=== PATIENT | male | born 1935 | race Caucasian/White ===

== ENCOUNTER 2018-03-25 10:58 | Inpatient (IN) | payer MEDICARE, OTHER ==
[~2018-03-25] VITALS: Ht 170.2 cm; Wt 62.0 kg
[~2018-03-25 10:58] MED LIST: OSC500T PO
[2018-03-25] MEDS ORDERED: AMLODIPINE BESYLATE 10 MG TAB (11:24)
[2018-03-25] MEDS ORDERED: [UNRECOGNIZED DRUG - OTHER] (11:24)
[2018-03-25] MEDS ORDERED: INDOMETHACIN 50 MG CAPSULE (11:24)
[2018-03-25 11:41] LABS: BASOPHILS # (AUTO) 0.1 X10'3 (0-0.2); BASOPHILS % (AUTO) 1.2 % (0-1); EOSINOPHILS # (AUTO) 0.3 X10'3 (0-0.9); EOSINOPHILS % (AUTO) 2.7 % (0-6); HEMATOCRIT 35.2 % (42.0-52.0); HEMOGLOBIN 11.9 g/dl (14.0-17.9); LYMPHOCYTES # (AUTO) 1.1 X10'3 (1.1-4.8); LYMPHOCYTES % (AUTO) 11.8 % (21-51); MEAN CORPUSCULAR HEMOGLOBIN 30.5 PG (27.0-31.0); MEAN CORPUSCULAR HGB CONC 33.7 % (33.0-36.5); MEAN CORPUSCULAR VOLUME 90.7 FL (78-98); MEAN PLATELET VOLUME 7.9 FL (7.4-10.4); MONOCYTES # (AUTO) 1.2 X10'3 (0-0.9); MONOCYTES % (AUTO) 12.4 % (2-12); NEUTROPHILS # (AUTO) 6.7 X10'3 (1.8-7.7); NEUTROPHILS % (AUTO) 71.9 % (42-75); PLATELET COUNT 307 X10'3 (140-440); RED BLOOD COUNT 3.89 X10'6 (4.70-6.10); RED CELL DISTRIBUTION WIDTH 13.6 % (11.5-14.5); WHITE BLOOD COUNT 9.4 X10'3 (4.5-11.0)
[2018-03-25 12:00] LABS: INR 1.1 INR; PARTIAL THROMBOPLASTIN TIME 27 SECONDS (22-32); PROTHROMBIN TIME 11.2 SECONDS (9.0-12.0)
[2018-03-25 12:05] LABS: ALANINE AMINOTRANSFERASE 15 U/L (12-78); ALBUMIN 3.2 G/DL (3.4-5.0); ALBUMIN/GLOBULIN RATIO 0.7 (1.1-1.5); ALKALINE PHOSPHATASE 103 IU/L (46-116); ANION GAP 16 (8-16); BILIRUBIN,TOTAL 0.4 MG/DL (0.1-1.0); BLOOD UREA NITROGEN 70 MG/DL (7-18); CHLORIDE 103 MMOL/L (99-107); CREATININE 3.68 MG/DL (0.60-1.10); GLUCOSE 110 MG/DL (70-104); SODIUM 138 MMOL/L (135-145); TOTAL CARBON DIOXIDE 18.9 MMOL/L (24-32); TOTAL PROTEIN 7.5 G/DL (6.4-8.2); eGFR 16 ML/MIN
[2018-03-25 12:08] LABS: ASPARTATE AMINO TRANSFERASE 16 U/L (10-37); POTASSIUM 4.8 MMOL/L (3.5-5.1)
[2018-03-25] MEDS ORDERED: acetaminophen 325mg tablet PO PRN (13:15)
[2018-03-25] MEDS ORDERED: magnesium hydroxide 30ml (MOM) UD suspension PO PRN (13:15)
[2018-03-25] MEDS ORDERED: potassium Cl 40MEQ/NS 500ml 500 ML IV PRN ×2 (13:15)
[2018-03-25] MEDS ORDERED: magnesium 4gm in 100ml NS 100 ML IV PRN (13:15)
[2018-03-25] MEDS ORDERED: ondansetron/PF 4mg/2ml inj IV PRN (13:15)
[2018-03-25] MEDS ORDERED: potassium Cl 20 mEq SR tablet PO PRN ×2 (13:15)
[2018-03-25] MEDS ORDERED: mag hydrox/Alum hydrox/simeth 30ml oral suspension PO PRN (13:15)
[2018-03-25] MEDS: clopidogrel 75mg tablet PO SCH (15:10)
[2018-03-25 15:36] LABS: OSMOLALITY 312 MOSM/K (280-300)
[2018-03-25] MEDS ORDERED: aminophylline 250mg/10ml inj. IV PRN (15:40)
[2018-03-25] MEDS ORDERED: metoprolol tartrate 1mg/ml inj IV PRN (15:40)
[2018-03-25] MEDS ORDERED: regadenoson 0.4mg/5ml syringe IV ONE (15:40)
[2018-03-25 15:58] LABS: CLARITY,URINE CLEAR (Clear); COLOR,URINE STRAW (Yellow); GLUCOSE, URINE NEGATIVE (Neg); KETONES,URINE NEGATIVE (Neg); LEUKOCYTE ESTERASE ,URINE NEGATIVE (Neg); NITRITES, URINE NEGATIVE (Neg); OCCULT BLOOD,URINE NEGATIVE (Neg); PROTEIN,URINE NEGATIVE (Neg); UROBILINOGEN,URINE 0.2 E.U/dL (0.2-1.0)
[2018-03-25 16:00] LABS: SODIUM,URINE RANDOM 93 MEQ/L
[2018-03-25 16:03] LABS: UA COLLECTION TYPE URINAL
[2018-03-25 16:17] LABS: OSMOLALITY UA 412 MOSM/K (50-1400)
[2018-03-25] MEDS: nitroGLYCERIN 0.4mg SUBLingual tab SL PRN ×2 (19:09→23:19)
[2018-03-25] MEDS: heparin, porcine 5000 units/ml vial SQ SCH (20:53)
[2018-03-25] MEDS: carVEDilol 3.125mg tablet PO SCH (20:53)
[2018-03-25] MEDS: pantoprazole 40 MG vial IV SCH (20:53)
[2018-03-25 22:00] VITALS: BP 151/53
[2018-03-25] MEDS ORDERED: pneumococcal 23-VAL P-sac vacc 25 mcg/0.5ml vial IMVAC ONE (22:30)
[2018-03-25 23:25] VITALS: BP 156/59
[2018-03-26] VITALS (15 sets, daily range): BP systolic 122–161; BP diastolic 45–69
[2018-03-26 06:01] LABS: BASOPHILS % (AUTO) 0.4 % (0-1); EOSINOPHILS # (AUTO) 0.2 X10'3 (0-0.9); EOSINOPHILS % (AUTO) 3.5 % (0-6); HEMATOCRIT 32.1 % (42.0-52.0); HEMOGLOBIN 10.8 g/dl (14.0-17.9); LYMPHOCYTES # (AUTO) 0.8 X10'3 (1.1-4.8); LYMPHOCYTES % (AUTO) 11.2 % (21-51); MEAN CORPUSCULAR HEMOGLOBIN 30.5 PG (27.0-31.0); MEAN CORPUSCULAR HGB CONC 33.7 % (33.0-36.5); MEAN CORPUSCULAR VOLUME 90.4 FL (78-98); MEAN PLATELET VOLUME 7.4 FL (7.4-10.4); MONOCYTES # (AUTO) 0.7 X10'3 (0-0.9); MONOCYTES % (AUTO) 10.2 % (2-12); NEUTROPHILS # (AUTO) 5.3 X10'3 (1.8-7.7); NEUTROPHILS % (AUTO) 74.7 % (42-75); PLATELET COUNT 289 X10'3 (140-440); RED BLOOD COUNT 3.55 X10'6 (4.70-6.10); RED CELL DISTRIBUTION WIDTH 13.6 % (11.5-14.5); WHITE BLOOD COUNT 7.1 X10'3 (4.5-11.0)
[2018-03-26 06:51] LABS: ALANINE AMINOTRANSFERASE 12 U/L (12-78); ALBUMIN 2.7 G/DL (3.4-5.0); ALBUMIN/GLOBULIN RATIO 0.8 (1.1-1.5); ALKALINE PHOSPHATASE 81 IU/L (46-116); ANION GAP 15 (8-16); ASPARTATE AMINO TRANSFERASE 9 U/L (10-37); BILIRUBIN,TOTAL 0.4 MG/DL (0.1-1.0); BLOOD UREA NITROGEN 70 MG/DL (7-18); BUN/CREATININE RATIO 21.1 (5.4-32.0); CALCIUM 8.5 MG/DL (8.5-10.1); CHLORIDE 107 MMOL/L (99-107); CREATININE 3.32 MG/DL (0.60-1.10); GLUCOSE 101 MG/DL (70-104); MAGNESIUM 1.4 MG/DL (1.5-2.4); POTASSIUM 4.3 MMOL/L (3.5-5.1); SODIUM 140 MMOL/L (135-145); TOTAL CARBON DIOXIDE 18.3 MMOL/L (24-32); TOTAL PROTEIN 6.2 G/DL (6.4-8.2); eGFR 18 ML/MIN
[2018-03-26] MEDS: pantoprazole 40 MG vial IV SCH ×2 (07:52→19:11)
[2018-03-26] MEDS: clopidogrel 75mg tablet PO SCH (07:52)
[2018-03-26] MEDS: heparin, porcine 5000 units/ml vial SQ SCH ×2 (07:52→19:12)
[2018-03-26] MEDS: K and/or MAG REPLACEMENT MC SCH (08:00)
[2018-03-26] MEDS: carVEDilol 3.125mg tablet PO SCH (08:00)
[2018-03-26] MEDS: magnesium Cl slow-release 64mg tablet PO PRN ×2 (08:04→18:29)
[2018-03-26] MEDS ORDERED: regadenoson 0.4mg/5ml syringe IV ONE (10:44)
[2018-03-26] MEDS ORDERED: aminophylline inj. 10 ML IV ONE (10:44)
[2018-03-26] MEDS ORDERED: regadenoson 0.4mg/5ml syringe IV PRN (10:45)
[2018-03-26] MEDS: carVEDilol 12.5mg tablet PO SCH (19:11)
[2018-03-27 05:02] LABS: BASOPHILS % (AUTO) 0.2 % (0-1); EOSINOPHILS # (AUTO) 0.4 X10'3 (0-0.9); EOSINOPHILS % (AUTO) 5.1 % (0-6); HEMATOCRIT 30.1 % (42.0-52.0); HEMOGLOBIN 10.2 g/dl (14.0-17.9); LYMPHOCYTES % (AUTO) 13.3 % (21-51); MEAN CORPUSCULAR HEMOGLOBIN 30.4 PG (27.0-31.0); MEAN CORPUSCULAR HGB CONC 33.9 % (33.0-36.5); MEAN CORPUSCULAR VOLUME 89.8 FL (78-98); MEAN PLATELET VOLUME 7.3 FL (7.4-10.4); MONOCYTES # (AUTO) 0.9 X10'3 (0-0.9); MONOCYTES % (AUTO) 11.3 % (2-12); NEUTROPHILS # (AUTO) 5.4 X10'3 (1.8-7.7); NEUTROPHILS % (AUTO) 70.1 % (42-75); PLATELET COUNT 277 X10'3 (140-440); RED BLOOD COUNT 3.35 X10'6 (4.70-6.10); RED CELL DISTRIBUTION WIDTH 13.4 % (11.5-14.5); WHITE BLOOD COUNT 7.7 X10'3 (4.5-11.0)
[2018-03-27 05:43] LABS: ALANINE AMINOTRANSFERASE 13 U/L (12-78); ALBUMIN 2.6 G/DL (3.4-5.0); ALBUMIN/GLOBULIN RATIO 0.8 (1.1-1.5); ALKALINE PHOSPHATASE 73 IU/L (46-116); ANION GAP 13 (8-16); ASPARTATE AMINO TRANSFERASE 10 U/L (10-37); BILIRUBIN,TOTAL 0.4 MG/DL (0.1-1.0); BLOOD UREA NITROGEN 72 MG/DL (7-18); BUN/CREATININE RATIO 21.9 (5.4-32.0); CALCIUM 8.7 MG/DL (8.5-10.1); CHLORIDE 108 MMOL/L (99-107); CHOL/HDL RATIO 7.8 (0.00-4.99); CHOLESTEROL 149 MG/DL (0-200); CREATININE 3.29 MG/DL (0.60-1.10); GLUCOSE 100 MG/DL (70-104); HDL CHOLESTEROL 19 MG/DL (35-60); LDL CHOLESTEROL 108 MG/DL (50-100); MAGNESIUM 1.5 MG/DL (1.5-2.4); POTASSIUM 4.1 MMOL/L (3.5-5.1); SODIUM 140 MMOL/L (135-145); TOTAL CARBON DIOXIDE 19.2 MMOL/L (24-32); TOTAL PROTEIN 5.9 G/DL (6.4-8.2); TRIGLYCERIDES 133 MG/DL (20-135); eGFR 18 ML/MIN
[2018-03-27 06:00] VITALS: BP 107/47
[2018-03-27 06:47] LABS: CLARITY,URINE CLEAR (Clear); COLOR,URINE YELLOW (Yellow); GLUCOSE, URINE NEGATIVE (Neg); KETONES,URINE NEGATIVE (Neg); LEUKOCYTE ESTERASE ,URINE NEGATIVE (Neg); NITRITES, URINE NEGATIVE (Neg); OCCULT BLOOD,URINE NEGATIVE (Neg); PH,URINE 5.5 (4.8-8.0); PROTEIN,URINE NEGATIVE (Neg); UROBILINOGEN,URINE 0.2 E.U/dL (0.2-1.0)
[2018-03-27 06:52] LABS: UA COLLECTION TYPE VOIDED
[2018-03-27] MEDS: pantoprazole 40 MG vial IV SCH ×2 (07:23→20:49)
[2018-03-27] MEDS: atorvastatin 10mg tablet PO SCH (07:28)
[2018-03-27] MEDS: clopidogrel 75mg tablet PO SCH (07:28)
[2018-03-27] MEDS: heparin, porcine 5000 units/ml vial SQ SCH ×2 (07:29→20:50)
[2018-03-27] MEDS: carVEDilol 12.5mg tablet PO SCH ×2 (07:33→20:50)
[2018-03-27] MEDS: K and/or MAG REPLACEMENT MC SCH (08:00)
[2018-03-27] MEDS ORDERED: azithromycin/NS 500mg/250ml 250 ML IV SCH (09:55)
[2018-03-27 11:00] VITALS: BP 125/55
[2018-03-27] MEDS: CefTRIAXone/D5W-Rocephin 1gm 50 ML IV SCH (11:34)
[2018-03-27 14:11] LABS: CLARITY,URINE CLEAR (Clear); COLOR,URINE YELLOW (Yellow); GLUCOSE, URINE NEGATIVE (Neg); KETONES,URINE NEGATIVE (Neg); LEUKOCYTE ESTERASE ,URINE NEGATIVE (Neg); NITRITES, URINE NEGATIVE (Neg); OCCULT BLOOD,URINE NEGATIVE (Neg); PH,URINE 5.5 (4.8-8.0); PROTEIN,URINE NEGATIVE (Neg); UROBILINOGEN,URINE 0.2 E.U/dL (0.2-1.0)
[2018-03-27 14:16] LABS: UA COLLECTION TYPE NON-SPECIFIED
[2018-03-27 14:27] LABS: TOTAL PROTEIN,URINE RANDOM 27.1 MG/DL
[2018-03-27 15:00] VITALS: BP 120/54
[2018-03-27 19:00] VITALS: BP 141/54
[2018-03-27] MEDS: lactobacillus rhamnosus 10,000 MMU CELLS/CAPSULE PO SCH (20:00)
[2018-03-27] MEDS: sodium bicarbonate 650mg tablet PO SCH (20:50)
[2018-03-27 23:00] VITALS: BP 133/52
[2018-03-28 03:00] VITALS: BP 123/54
[2018-03-28 06:24] LABS: BASOPHILS % (AUTO) 0.9 % (0-1); EOSINOPHILS # (AUTO) 0.4 X10'3 (0-0.9); EOSINOPHILS % (AUTO) 6.8 % (0-6); HEMATOCRIT 30.9 % (42.0-52.0); HEMOGLOBIN 10.5 g/dl (14.0-17.9); LYMPHOCYTES # (AUTO) 1.1 X10'3 (1.1-4.8); LYMPHOCYTES % (AUTO) 19.9 % (21-51); MEAN CORPUSCULAR HEMOGLOBIN 30.6 PG (27.0-31.0); MEAN CORPUSCULAR HGB CONC 34.1 % (33.0-36.5); MEAN CORPUSCULAR VOLUME 89.9 FL (78-98); MEAN PLATELET VOLUME 7.6 FL (7.4-10.4); MONOCYTES # (AUTO) 0.5 X10'3 (0-0.9); MONOCYTES % (AUTO) 9.3 % (2-12); NEUTROPHILS # (AUTO) 3.4 X10'3 (1.8-7.7); NEUTROPHILS % (AUTO) 63.1 % (42-75); PLATELET COUNT 295 X10'3 (140-440); RED BLOOD COUNT 3.44 X10'6 (4.70-6.10); RED CELL DISTRIBUTION WIDTH 13.3 % (11.5-14.5); WHITE BLOOD COUNT 5.4 X10'3 (4.5-11.0)
[2018-03-28 06:39] LABS: ALANINE AMINOTRANSFERASE 13 U/L (12-78); ALBUMIN 2.7 G/DL (3.4-5.0); ALBUMIN/GLOBULIN RATIO 0.8 (1.1-1.5); ALKALINE PHOSPHATASE 73 IU/L (46-116); ANION GAP 13 (8-16); ASPARTATE AMINO TRANSFERASE 12 U/L (10-37); BILIRUBIN,TOTAL 0.3 MG/DL (0.1-1.0); BLOOD UREA NITROGEN 64 MG/DL (7-18); BUN/CREATININE RATIO 20.4 (5.4-32.0); CALCIUM 8.9 MG/DL (8.5-10.1); CHLORIDE 108 MMOL/L (99-107); CREATININE 3.13 MG/DL (0.60-1.10); GLUCOSE 96 MG/DL (70-104); MAGNESIUM 1.6 MG/DL (1.5-2.4); POTASSIUM 4.3 MMOL/L (3.5-5.1); SODIUM 141 MMOL/L (135-145); TOTAL CARBON DIOXIDE 19.9 MMOL/L (24-32); TOTAL PROTEIN 6.2 G/DL (6.4-8.2); eGFR 19 ML/MIN
[2018-03-28 07:00] VITALS: BP 125/53
[2018-03-28] MEDS: K and/or MAG REPLACEMENT MC SCH (08:00)
[2018-03-28] MEDS: CefTRIAXone/D5W-Rocephin 1gm 50 ML IV SCH (08:42)
[2018-03-28] MEDS: pantoprazole 40 MG vial IV SCH (08:43)
[2018-03-28] MEDS: heparin, porcine 5000 units/ml vial SQ SCH (08:44)
[2018-03-28] MEDS: atorvastatin 10mg tablet PO SCH (08:44)
[2018-03-28] MEDS: carVEDilol 12.5mg tablet PO SCH (08:44)
[2018-03-28] MEDS: lactobacillus rhamnosus 10,000 MMU CELLS/CAPSULE PO SCH (08:44)
[2018-03-28] MEDS: clopidogrel 75mg tablet PO SCH (08:44)
[2018-03-28] MEDS: sodium bicarbonate 650mg tablet PO SCH ×2 (08:44→13:20)
[2018-03-28 09:02] VITALS: BP 141/57
[2018-03-28] MEDS ORDERED: sodium chloride 0.45% 1,000 ML IV SCH (09:10)
[2018-03-28] MEDS ORDERED: nitroGLYCERIN 0.4mg SUBLingual tab SL PRN (09:10)
[2018-03-28] MEDS ORDERED: levoFLOXACIN-Levaquin 750MG/D5 150 ML IV SCH (09:10)
[2018-03-28 11:00] VITALS: BP 125/57
[2018-03-29] MEDS ORDERED: atorvastatin 20mg tablet PO SCH (08:00)
[2018-03-30] MEDS ORDERED: levoFLOXACIN-Levaquin 500mg/D5 150 ML IV SCH (08:00)
[2018-03-30] MEDS ORDERED: levoFLOXACIN-Levaquin 500mg/D5 100 ML IV SCH (08:00)
== END 2018-03-28 15:52 | disposition left against medical advice (07) | DRG 682 ==
LOC: ER 10:58 → ED HOLD 13:15 → PCU 3S 21:25
PROVIDERS: ADMIT Internal Medicine; ATTEND Internal Medicine
PROC: 4A02XM4 Measurement of Cardiac Total Activity, External Approach (ICD-10-PCS; principal; 2018-03-26)
PROC: 3E033HZ Introduction of Radioactive Substance into Peripheral Vein, Percutaneous Approach (ICD-10-PCS; 2018-03-26)
PROC: CT131ZZ Planar Nuclear Medicine Imaging of Kidneys, Ureters and Bladder using Technetium 99m (Tc-99m) (ICD-10-PCS; 2018-03-28)
DX: N17.9 Acute kidney failure, unspecified (principal); J18.9 Pneumonia, unspecified organism; I12.9 Hypertensive chronic kidney disease with stage 1 through stage 4 chronic kidney disease, or unspecified chronic kidney disease; I25.10 Atherosclerotic heart disease of native coronary artery without angina pectoris; K21.9 Gastro-esophageal reflux disease without esophagitis; M10.9 Gout, unspecified; M25.562 Pain in left knee; E87.8 Other disorders of electrolyte and fluid balance, not elsewhere classified; R80.9 Proteinuria, unspecified; R91.8 Other nonspecific abnormal finding of lung field; N18.3 Chronic kidney disease, stage 3 (moderate); Z53.21 Procedure and treatment not carried out due to patient leaving prior to being seen by health care provider; Z95.1 Presence of aortocoronary bypass graft; Z79.82 Long term (current) use of aspirin; Z88.6 Allergy status to analgesic agent; Z79.899 Other long term (current) drug therapy; Z92.21 Personal history of antineoplastic chemotherapy; Z92.3 Personal history of irradiation; Z87.891 Personal history of nicotine dependence; Z85.118 Personal history of other malignant neoplasm of bronchus and lung
CPT/HCPCS: 36415; 71045; 71250; 76775; 78452; 78707; 80053; 80061; 81003; 82570; 83735; 83880; 83930; 83935; 84133; 84156; 84300; 84484; 85025; 85610; 85730; 87070; 90732; 93005; 93017; 93306; 99285; A9500; A9562; C9113; G0378; J0280; J0456; J0696; J1644; J1956

== ENCOUNTER 2018-03-31 21:22 | Inpatient (IN) | payer MEDICARE, MEDICAID ==
[~2018-03-31] VITALS: Ht 175.3 cm; Wt 63.9 kg
[2018-03-31] MEDS ORDERED: ondansetron/PF 4mg/2ml inj IV ONE (21:30)
[2018-03-31] MEDS ORDERED: normal saline 1000ML IV soln IV ONE (21:30)
[2018-03-31] MEDS ORDERED: pantoprazole 40 MG vial IV ONE (21:30)
[2018-03-31] MEDS ORDERED: octreotide inj. 1,250 MCG in normal saline 250ml IV soln 250 ML IV ONE (21:30)
[2018-03-31 22:01] LABS: BASOPHILS % (AUTO) 0.1 % (0-1); EOSINOPHILS # (AUTO) 0.3 X10'3 (0-0.9); LYMPHOCYTES # (AUTO) 1.5 X10'3 (1.1-4.8); LYMPHOCYTES % (AUTO) 10.1 % (21-51); MEAN CORPUSCULAR HEMOGLOBIN 30.4 PG (27.0-31.0); MEAN CORPUSCULAR HGB CONC 33.5 % (33.0-36.5); MEAN CORPUSCULAR VOLUME 90.9 FL (78-98); MEAN PLATELET VOLUME 8.3 FL (7.4-10.4); MONOCYTES # (AUTO) 0.5 X10'3 (0-0.9); MONOCYTES % (AUTO) 3.5 % (2-12); NEUTROPHILS # (AUTO) 12.3 X10'3 (1.8-7.7); NEUTROPHILS % (AUTO) 84.3 % (42-75); PLATELET COUNT 229 X10'3 (140-440); RED BLOOD COUNT 1.59 X10'6 (4.70-6.10); RED CELL DISTRIBUTION WIDTH 13.6 % (11.5-14.5); WHITE BLOOD COUNT 14.6 X10'3 (4.5-11.0)
[2018-03-31 22:06] LABS: HEMATOCRIT 14.5 % (42.0-52.0); HEMOGLOBIN 4.9 g/dl (14.0-17.9)
[2018-03-31 22:16] LABS: ALANINE AMINOTRANSFERASE 15 U/L (12-78); ALBUMIN 2.3 G/DL (3.4-5.0); ALBUMIN/GLOBULIN RATIO 0.9 (1.1-1.5); ALKALINE PHOSPHATASE 53 IU/L (46-116); ANION GAP 22 (8-16); ASPARTATE AMINO TRANSFERASE 12 U/L (10-37); BILIRUBIN,TOTAL 0.2 MG/DL (0.1-1.0); BLOOD UREA NITROGEN 105 MG/DL (7-18); BUN/CREATININE RATIO 25.6 (5.4-32.0); CALCIUM 7.9 MG/DL (8.5-10.1); CHLORIDE 105 MMOL/L (99-107); GLUCOSE 249 MG/DL (70-104); POTASSIUM 5.2 MMOL/L (3.5-5.1); SODIUM 139 MMOL/L (135-145); TOTAL PROTEIN 4.8 G/DL (6.4-8.2); eGFR 14 ML/MIN
[2018-03-31 22:19] LABS: TOTAL CARBON DIOXIDE 12.2 MMOL/L (24-32)
[2018-03-31] MEDS ORDERED: morphine 4 MG/ML inj SYRINge IV ONE (22:20)
[2018-03-31] MEDS ORDERED: tranexamic acid 100mg/ml inj. IV ONE (22:20)
[2018-03-31] MEDS ORDERED: TRANEXAMIC ACID IV ONE (22:30)
[2018-03-31] MEDS ORDERED: NORMAL SALINE IV ONE (22:30)
[2018-03-31 22:44] LABS: INR 1.5 INR; PARTIAL THROMBOPLASTIN TIME 27 SECONDS (22-32); PROTHROMBIN TIME 14.7 SECONDS (9.0-12.0)
[2018-03-31] MEDS ORDERED: morphine 4 MG/ML inj SYRINge IM ONE (23:15)
[2018-03-31] MEDS: normal saline 1000ml 1,000 ML IV SCH (23:18)
[2018-03-31] MEDS ORDERED: acetaminophen 325mg tablet PO PRN ×2 (23:20)
[2018-03-31] MEDS ORDERED: potassium Cl 20 mEq SR tablet PO PRN ×2 (23:20)
[2018-03-31] MEDS ORDERED: potassium Cl 40MEQ/NS 500ml 500 ML IV PRN ×2 (23:20)
[2018-03-31] MEDS ORDERED: morphine 2 MG/ML inj. syringe IV PRN (23:20)
[2018-03-31] MEDS: K, MAG and/or Phos replacement - Verify level? MC SCH (23:20)
[2018-03-31] MEDS ORDERED: morphine 4 MG/ML inj SYRINge IV PRN (23:20)
[2018-03-31] MEDS ORDERED: ondansetron/PF 4mg/2ml inj IV PRN (23:20)
[2018-03-31] MEDS ORDERED: magnesium hydroxide 30ml (MOM) UD suspension PO PRN (23:20)
[2018-04-01] VITALS (33 sets, daily range): BP systolic 95–142; BP diastolic 39–85
[2018-04-01] MEDS ORDERED: pantoprazole 40MG/NS 100ML BAG 100 ML IV ONE (01:00)
[2018-04-01 02:11] LABS: ABG BASE EXCESS -10.8 mmol/L (-2.0-3.0); ABG HCO3 14.1 mmol/L (22.0-26.0); ABG OXYGEN SATURATION 97.7 % (95-98); ABG PCO2 (T) 27.3 mmHg (35.0-48.0); ABG PH (T) 7.331 (7.350-7.450); ABG PO2 (T) 130.4 mmHg (83-108); ALLEN'S TEST Positive; FCOHb 0.2 % (0.5-1.5); FMetHb 0.1 % (0.3-1.12); FO2Hb 97.4 % (94-100); PATIENT TEMPERATURE 36.9; TOTAL HEMOGLOBIN 6.7 G/dl (14.0-18.0)
[2018-04-01 05:27] LABS: BASOPHILS % (AUTO) 0.1 % (0-1); EOSINOPHILS # (AUTO) 0.2 X10'3 (0-0.9); EOSINOPHILS % (AUTO) 1.8 % (0-6); HEMATOCRIT 23.9 % (42.0-52.0); HEMOGLOBIN 7.8 g/dl (14.0-17.9); LYMPHOCYTES # (AUTO) 1.2 X10'3 (1.1-4.8); LYMPHOCYTES % (AUTO) 8.8 % (21-51); MEAN CORPUSCULAR HEMOGLOBIN 28.6 PG (27.0-31.0); MEAN CORPUSCULAR HGB CONC 32.6 % (33.0-36.5); MEAN CORPUSCULAR VOLUME 87.9 FL (78-98); MEAN PLATELET VOLUME 8.5 FL (7.4-10.4); MONOCYTES # (AUTO) 0.6 X10'3 (0-0.9); MONOCYTES % (AUTO) 4.6 % (2-12); NEUTROPHILS # (AUTO) 11.2 X10'3 (1.8-7.7); NEUTROPHILS % (AUTO) 84.7 % (42-75); PLATELET COUNT 158 X10'3 (140-440); RED BLOOD COUNT 2.72 X10'6 (4.70-6.10); RED CELL DISTRIBUTION WIDTH 16.8 % (11.5-14.5); WHITE BLOOD COUNT 13.3 X10'3 (4.5-11.0)
[2018-04-01 05:36] LABS: ALANINE AMINOTRANSFERASE 21 U/L (12-78); ALBUMIN 2.4 G/DL (3.4-5.0); ALKALINE PHOSPHATASE 51 IU/L (46-116); ANION GAP 13 (8-16); ASPARTATE AMINO TRANSFERASE 54 U/L (10-37); BILIRUBIN,TOTAL 0.6 MG/DL (0.1-1.0); BLOOD UREA NITROGEN 97 MG/DL (7-18); BUN/CREATININE RATIO 27.6 (5.4-32.0); CALCIUM 7.4 MG/DL (8.5-10.1); CHLORIDE 110 MMOL/L (99-107); CREATININE 3.51 MG/DL (0.60-1.10); GLUCOSE 161 MG/DL (70-104); POTASSIUM 5.7 MMOL/L (3.5-5.1); SODIUM 141 MMOL/L (135-145); TOTAL CARBON DIOXIDE 17.6 MMOL/L (24-32); TOTAL PROTEIN 4.8 G/DL (6.4-8.2); eGFR 17 ML/MIN
[2018-04-01 05:39] LABS: MAGNESIUM 1.3 MG/DL (1.5-2.4); PHOSPHORUS 4.8 MG/DL (2.3-4.5)
[2018-04-01] MEDS: K, MAG and/or Phos replacement - Verify level? MC SCH (08:00)
[2018-04-01] MEDS ORDERED: fentaNYL/PF 50MCG/1 ML 2ML syringe ONE (08:51)
[2018-04-01] MEDS ORDERED: LIDOcaine Viscous 15ml cup ONE (08:51)
[2018-04-01] MEDS ORDERED: MIDAZolam 5mg/5ml vial ONE (08:51)
[2018-04-01] MEDS: pantoprazole 40MG/NS 100ML BAG 100 ML IV SCH ×3 (10:31→19:41)
[2018-04-01 12:42] LABS: HEMOGLOBIN 7.2 g/dl (14.0-17.9); MEAN CORPUSCULAR HGB CONC 33.3 % (33.0-36.5); MEAN CORPUSCULAR VOLUME 87.2 FL (78-98); MEAN PLATELET VOLUME 8.1 FL (7.4-10.4); PLATELET COUNT 167 X10'3 (140-440); RED BLOOD COUNT 2.48 X10'6 (4.70-6.10); RED CELL DISTRIBUTION WIDTH 16.6 % (11.5-14.5)
[2018-04-01 12:45] LABS: HEMATOCRIT 21.7 % (42.0-52.0)
[2018-04-01] MEDS ORDERED: AMLO10TA4 PO (17:24)
[2018-04-01] MEDS ORDERED: POTA8TAB57 PO (17:25)
[2018-04-01] MEDS ORDERED: ASPI-611 PO (17:25)
[2018-04-01] MEDS ORDERED: FURO-150 PO (17:25)
[2018-04-01] MEDS ORDERED: METO25TA6 PO (17:25)
[2018-04-01] MEDS: normal saline 1000ml 1,000 ML IV SCH (17:38)
[2018-04-01 17:52] LABS: MEAN CORPUSCULAR HEMOGLOBIN 29.5 PG (27.0-31.0); MEAN CORPUSCULAR HGB CONC 33.5 % (33.0-36.5); MEAN CORPUSCULAR VOLUME 88.1 FL (78-98); MEAN PLATELET VOLUME 8.5 FL (7.4-10.4); PLATELET COUNT 165 X10'3 (140-440); RED BLOOD COUNT 2.22 X10'6 (4.70-6.10); RED CELL DISTRIBUTION WIDTH 16.9 % (11.5-14.5); WHITE BLOOD COUNT 12.3 X10'3 (4.5-11.0)
[2018-04-01 17:54] LABS: HEMATOCRIT 19.6 % (42.0-52.0); HEMOGLOBIN 6.6 g/dl (14.0-17.9)
[2018-04-01 22:09] LABS: MEAN CORPUSCULAR VOLUME 87.6 FL (78-98); MEAN PLATELET VOLUME 8.1 FL (7.4-10.4); PLATELET COUNT 146 X10'3 (140-440); RED BLOOD COUNT 2.14 X10'6 (4.70-6.10); RED CELL DISTRIBUTION WIDTH 16.4 % (11.5-14.5); WHITE BLOOD COUNT 12.2 X10'3 (4.5-11.0)
[2018-04-01 22:34] LABS: HEMATOCRIT 18.7 % (42.0-52.0)
[2018-04-02] VITALS (34 sets, daily range): BP systolic 103–158; BP diastolic 40–70
[2018-04-02] MEDS: normal saline 1000ml 1,000 ML IV SCH (01:58)
[2018-04-02] MEDS: pantoprazole 40MG/NS 100ML BAG 100 ML IV SCH ×5 (02:50→20:52)
[2018-04-02 03:16] LABS: BASOPHILS # (AUTO) 0.1 X10'3 (0-0.2); BASOPHILS % (AUTO) 0.6 % (0-1); EOSINOPHILS # (AUTO) 0.1 X10'3 (0-0.9); EOSINOPHILS % (AUTO) 0.6 % (0-6); HEMATOCRIT 22.1 % (42.0-52.0); HEMOGLOBIN 7.4 g/dl (14.0-17.9); LYMPHOCYTES # (AUTO) 0.9 X10'3 (1.1-4.8); LYMPHOCYTES % (AUTO) 6.2 % (21-51); MEAN CORPUSCULAR HEMOGLOBIN 29.6 PG (27.0-31.0); MEAN CORPUSCULAR HGB CONC 33.7 % (33.0-36.5); MEAN CORPUSCULAR VOLUME 87.9 FL (78-98); MEAN PLATELET VOLUME 8.9 FL (7.4-10.4); MONOCYTES # (AUTO) 0.3 X10'3 (0-0.9); NEUTROPHILS # (AUTO) 13.2 X10'3 (1.8-7.7); NEUTROPHILS % (AUTO) 90.6 % (42-75); PLATELET COUNT 111 X10'3 (140-440); RED BLOOD COUNT 2.51 X10'6 (4.70-6.10); RED CELL DISTRIBUTION WIDTH 15.3 % (11.5-14.5); WHITE BLOOD COUNT 14.6 X10'3 (4.5-11.0)
[2018-04-02 03:22] LABS: ALANINE AMINOTRANSFERASE 21 U/L (12-78); ALBUMIN 2.1 G/DL (3.4-5.0); ALKALINE PHOSPHATASE 45 IU/L (46-116); ANION GAP 11 (8-16); ASPARTATE AMINO TRANSFERASE 52 U/L (10-37); BILIRUBIN,TOTAL 0.5 MG/DL (0.1-1.0); BLOOD UREA NITROGEN 102 MG/DL (7-18); BUN/CREATININE RATIO 33.6 (5.4-32.0); CALCIUM 7.1 MG/DL (8.5-10.1); CHLORIDE 112 MMOL/L (99-107); CREATININE 3.04 MG/DL (0.60-1.10); GLUCOSE 139 MG/DL (70-104); MAGNESIUM 1.2 MG/DL (1.5-2.4); PHOSPHORUS 2.9 MG/DL (2.3-4.5); POTASSIUM 4.9 MMOL/L (3.5-5.1); SODIUM 141 MMOL/L (135-145); TOTAL CARBON DIOXIDE 17.7 MMOL/L (24-32); TOTAL PROTEIN 4.2 G/DL (6.4-8.2); eGFR 20 ML/MIN
[2018-04-02 07:07] LABS: MEAN CORPUSCULAR HGB CONC 33.1 % (33.0-36.5); MEAN CORPUSCULAR VOLUME 87.7 FL (78-98); MEAN PLATELET VOLUME 8.2 FL (7.4-10.4); PLATELET COUNT 155 X10'3 (140-440); RED CELL DISTRIBUTION WIDTH 15.7 % (11.5-14.5); WHITE BLOOD COUNT 13.5 X10'3 (4.5-11.0)
[2018-04-02 08:06] LABS: CLARITY,URINE CLEAR (Clear); COLOR,URINE YELLOW (Yellow); GLUCOSE, URINE NEGATIVE (Neg); KETONES,URINE NEGATIVE (Neg); LEUKOCYTE ESTERASE ,URINE NEGATIVE (Neg); NITRITES, URINE NEGATIVE (Neg); OCCULT BLOOD,URINE NEGATIVE (Neg); PH,URINE 5.5 (4.8-8.0); PROTEIN,URINE NEGATIVE (Neg); UROBILINOGEN,URINE 0.2 E.U/dL (0.2-1.0)
[2018-04-02 08:14] LABS: UA COLLECTION TYPE CLN CATCH MIDSTREAM
[2018-04-02 08:18] LABS: TOTAL PROTEIN,URINE RANDOM 8.9 MG/DL
[2018-04-02] MEDS: K, MAG and/or Phos replacement - Verify level? MC SCH (08:23)
[2018-04-02] MEDS: sodium chloride 0.45% 1,000 ML IV SCH ×3 (09:24→22:20)
[2018-04-02 16:52] LABS: HEMATOCRIT 27.5 % (42.0-52.0); HEMOGLOBIN 9.1 g/dl (14.0-17.9); MEAN CORPUSCULAR HEMOGLOBIN 29.9 PG (27.0-31.0); MEAN CORPUSCULAR HGB CONC 33.2 % (33.0-36.5); MEAN CORPUSCULAR VOLUME 89.9 FL (78-98); MEAN PLATELET VOLUME 8.4 FL (7.4-10.4); PLATELET COUNT 143 X10'3 (140-440); RED BLOOD COUNT 3.06 X10'6 (4.70-6.10); RED CELL DISTRIBUTION WIDTH 15.1 % (11.5-14.5); WHITE BLOOD COUNT 15.5 X10'3 (4.5-11.0)
[2018-04-02 17:07] LABS: ALBUMIN 2.2 G/DL (3.4-5.0); ANION GAP 12 (8-16); ASPARTATE AMINO TRANSFERASE 34 U/L (10-37); BILIRUBIN,TOTAL 0.6 MG/DL (0.1-1.0); BLOOD UREA NITROGEN 95 MG/DL (7-18); BUN/CREATININE RATIO 34.3 (5.4-32.0); CALCIUM 7.3 MG/DL (8.5-10.1); CHLORIDE 111 MMOL/L (99-107); CREATININE 2.77 MG/DL (0.60-1.10); GLUCOSE 112 MG/DL (70-104); MAGNESIUM 1.2 MG/DL (1.5-2.4); PHOSPHORUS 2.5 MG/DL (2.3-4.5); POTASSIUM 4.2 MMOL/L (3.5-5.1); SODIUM 140 MMOL/L (135-145); TOTAL CARBON DIOXIDE 17.1 MMOL/L (24-32); TOTAL PROTEIN 4.4 G/DL (6.4-8.2); eGFR 22 ML/MIN
[2018-04-02 17:08] LABS: ALANINE AMINOTRANSFERASE 17 U/L (12-78); ALKALINE PHOSPHATASE 46 IU/L (46-116)
[2018-04-02] MEDS: polyethylene glycol 3350 17gm powd pack PO SCH (20:52)
[2018-04-02 21:38] LABS: HEMATOCRIT 26.1 % (42.0-52.0); HEMOGLOBIN 8.7 g/dl (14.0-17.9); MEAN CORPUSCULAR HEMOGLOBIN 29.9 PG (27.0-31.0); MEAN CORPUSCULAR HGB CONC 33.3 % (33.0-36.5); MEAN CORPUSCULAR VOLUME 89.7 FL (78-98); MEAN PLATELET VOLUME 8.7 FL (7.4-10.4); PLATELET COUNT 148 X10'3 (140-440); RED CELL DISTRIBUTION WIDTH 15.4 % (11.5-14.5); WHITE BLOOD COUNT 14.9 X10'3 (4.5-11.0)
[2018-04-03] VITALS (10 sets, daily range): BP systolic 122–149; BP diastolic 53–99
[2018-04-03] MEDS: pantoprazole 40MG/NS 100ML BAG 100 ML IV SCH ×6 (01:56→23:17)
[2018-04-03 06:39] LABS: BASOPHILS % (AUTO) 0.1 % (0-1); EOSINOPHILS # (AUTO) 0.3 X10'3 (0-0.9); EOSINOPHILS % (AUTO) 2.9 % (0-6); HEMATOCRIT 24.7 % (42.0-52.0); HEMOGLOBIN 8.3 g/dl (14.0-17.9); LYMPHOCYTES # (AUTO) 1.1 X10'3 (1.1-4.8); LYMPHOCYTES % (AUTO) 11.2 % (21-51); MEAN CORPUSCULAR HEMOGLOBIN 30.2 PG (27.0-31.0); MEAN CORPUSCULAR HGB CONC 33.5 % (33.0-36.5); MEAN CORPUSCULAR VOLUME 90.1 FL (78-98); MEAN PLATELET VOLUME 8.6 FL (7.4-10.4); MONOCYTES # (AUTO) 0.9 X10'3 (0-0.9); MONOCYTES % (AUTO) 8.9 % (2-12); NEUTROPHILS # (AUTO) 7.8 X10'3 (1.8-7.7); NEUTROPHILS % (AUTO) 76.9 % (42-75); PLATELET COUNT 150 X10'3 (140-440); RED BLOOD COUNT 2.74 X10'6 (4.70-6.10); RED CELL DISTRIBUTION WIDTH 15.4 % (11.5-14.5); WHITE BLOOD COUNT 10.2 X10'3 (4.5-11.0)
[2018-04-03 07:06] LABS: ALANINE AMINOTRANSFERASE 16 U/L (12-78); ALBUMIN/GLOBULIN RATIO 0.9 (1.1-1.5); ALKALINE PHOSPHATASE 41 IU/L (46-116); ANION GAP 11 (8-16); ASPARTATE AMINO TRANSFERASE 26 U/L (10-37); BILIRUBIN,TOTAL 0.4 MG/DL (0.1-1.0); BLOOD UREA NITROGEN 80 MG/DL (7-18); BUN/CREATININE RATIO 31.5 (5.4-32.0); CALCIUM 7.5 MG/DL (8.5-10.1); CHLORIDE 111 MMOL/L (99-107); CREATININE 2.54 MG/DL (0.60-1.10); GLUCOSE 100 MG/DL (70-104); MAGNESIUM 1.3 MG/DL (1.5-2.4); PHOSPHORUS 2.7 MG/DL (2.3-4.5); POTASSIUM 3.7 MMOL/L (3.5-5.1); SODIUM 140 MMOL/L (135-145); TOTAL CARBON DIOXIDE 18.3 MMOL/L (24-32); TOTAL PROTEIN 4.2 G/DL (6.4-8.2); eGFR 24 ML/MIN
[2018-04-03] MEDS: sodium chloride 0.45% 1,000 ML IV SCH ×3 (08:05→17:57)
[2018-04-03] MEDS: K, MAG and/or Phos replacement - Verify level? MC SCH (08:06)
[2018-04-03] MEDS ORDERED: magnesium 2GM in 50ml NS 50 ML IV ONE (09:30)
[2018-04-03] MEDS: polyethylene glycol 3350 17gm powd pack PO SCH (21:14)
[2018-04-04] VITALS: BP 110/52
[2018-04-04] MEDS: pantoprazole 40MG/NS 100ML BAG 100 ML IV SCH (05:23)
[2018-04-04 06:13] LABS: BASOPHILS % (AUTO) 0.3 % (0-1); EOSINOPHILS # (AUTO) 0.3 X10'3 (0-0.9); EOSINOPHILS % (AUTO) 3.7 % (0-6); HEMATOCRIT 23.5 % (42.0-52.0); HEMOGLOBIN 7.7 g/dl (14.0-17.9); LYMPHOCYTES # (AUTO) 0.9 X10'3 (1.1-4.8); LYMPHOCYTES % (AUTO) 10.3 % (21-51); MEAN CORPUSCULAR HEMOGLOBIN 29.6 PG (27.0-31.0); MEAN CORPUSCULAR HGB CONC 32.9 % (33.0-36.5); MEAN CORPUSCULAR VOLUME 90.1 FL (78-98); MEAN PLATELET VOLUME 8.4 FL (7.4-10.4); MONOCYTES # (AUTO) 0.7 X10'3 (0-0.9); MONOCYTES % (AUTO) 8.5 % (2-12); NEUTROPHILS # (AUTO) 6.7 X10'3 (1.8-7.7); NEUTROPHILS % (AUTO) 77.2 % (42-75); PLATELET COUNT 180 X10'3 (140-440); RED CELL DISTRIBUTION WIDTH 15.5 % (11.5-14.5); WHITE BLOOD COUNT 8.6 X10'3 (4.5-11.0)
[2018-04-04 06:46] LABS: ALANINE AMINOTRANSFERASE 15 U/L (12-78); ALBUMIN/GLOBULIN RATIO 0.8 (1.1-1.5); ALKALINE PHOSPHATASE 47 IU/L (46-116); ANION GAP 11 (8-16); ASPARTATE AMINO TRANSFERASE 20 U/L (10-37); BILIRUBIN,TOTAL 0.5 MG/DL (0.1-1.0); BLOOD UREA NITROGEN 54 MG/DL (7-18); BUN/CREATININE RATIO 23.8 (5.4-32.0); CALCIUM 7.7 MG/DL (8.5-10.1); CHLORIDE 110 MMOL/L (99-107); CREATININE 2.27 MG/DL (0.60-1.10); GLUCOSE 105 MG/DL (70-104); MAGNESIUM 1.7 MG/DL (1.5-2.4); PHOSPHORUS 2.9 MG/DL (2.3-4.5); POTASSIUM 3.7 MMOL/L (3.5-5.1); SODIUM 139 MMOL/L (135-145); TOTAL CARBON DIOXIDE 17.8 MMOL/L (24-32); TOTAL PROTEIN 4.5 G/DL (6.4-8.2); eGFR 28 ML/MIN
[2018-04-04 07:32] VITALS: BP 137/58
[2018-04-04] MEDS: K, MAG and/or Phos replacement - Verify level? MC SCH (08:00)
[2018-04-04] MEDS: sodium chloride 0.45% 1,000 ML IV SCH ×4 (08:40→23:33)
[2018-04-04 11:30] VITALS: BP 132/56
[2018-04-04] MEDS: pantoprazole 40 MG vial IV SCH ×2 (13:04→19:55)
[2018-04-04 17:47] LABS: BASOPHILS % (AUTO) 0.6 % (0-1); EOSINOPHILS # (AUTO) 0.3 X10'3 (0-0.9); EOSINOPHILS % (AUTO) 2.9 % (0-6); HEMATOCRIT 23.7 % (42.0-52.0); HEMOGLOBIN 7.9 g/dl (14.0-17.9); LYMPHOCYTES # (AUTO) 0.9 X10'3 (1.1-4.8); LYMPHOCYTES % (AUTO) 10.3 % (21-51); MEAN CORPUSCULAR HEMOGLOBIN 30.2 PG (27.0-31.0); MEAN CORPUSCULAR HGB CONC 33.2 % (33.0-36.5); MEAN CORPUSCULAR VOLUME 90.8 FL (78-98); MEAN PLATELET VOLUME 7.8 FL (7.4-10.4); MONOCYTES # (AUTO) 0.9 X10'3 (0-0.9); MONOCYTES % (AUTO) 9.8 % (2-12); NEUTROPHILS # (AUTO) 6.8 X10'3 (1.8-7.7); NEUTROPHILS % (AUTO) 76.4 % (42-75); PLATELET COUNT 210 X10'3 (140-440); RED BLOOD COUNT 2.61 X10'6 (4.70-6.10); RED CELL DISTRIBUTION WIDTH 15.3 % (11.5-14.5); WHITE BLOOD COUNT 8.9 X10'3 (4.5-11.0)
[2018-04-04 18:50] VITALS: BP 134/59
[2018-04-04] MEDS: polyethylene glycol 3350 17gm powd pack PO SCH (21:00)
[2018-04-05] VITALS (9 sets, daily range): BP systolic 118–164; BP diastolic 55–81
[2018-04-05] MEDS: sodium chloride 0.45% 1,000 ML IV SCH (03:13)
[2018-04-05 06:02] LABS: BASOPHILS % (AUTO) 0.3 % (0-1); EOSINOPHILS # (AUTO) 0.4 X10'3 (0-0.9); EOSINOPHILS % (AUTO) 5.3 % (0-6); HEMATOCRIT 25.1 % (42.0-52.0); HEMOGLOBIN 8.5 g/dl (14.0-17.9); LYMPHOCYTES # (AUTO) 0.9 X10'3 (1.1-4.8); LYMPHOCYTES % (AUTO) 11.1 % (21-51); MEAN CORPUSCULAR HEMOGLOBIN 30.7 PG (27.0-31.0); MEAN CORPUSCULAR HGB CONC 33.8 % (33.0-36.5); MEAN CORPUSCULAR VOLUME 90.8 FL (78-98); MEAN PLATELET VOLUME 8.2 FL (7.4-10.4); MONOCYTES # (AUTO) 0.8 X10'3 (0-0.9); MONOCYTES % (AUTO) 10.5 % (2-12); NEUTROPHILS # (AUTO) 5.6 X10'3 (1.8-7.7); NEUTROPHILS % (AUTO) 72.8 % (42-75); PLATELET COUNT 237 X10'3 (140-440); RED BLOOD COUNT 2.77 X10'6 (4.70-6.10); RED CELL DISTRIBUTION WIDTH 15.4 % (11.5-14.5); WHITE BLOOD COUNT 7.7 X10'3 (4.5-11.0)
[2018-04-05 06:21] LABS: ALANINE AMINOTRANSFERASE 15 U/L (12-78); ALBUMIN 2.2 G/DL (3.4-5.0); ALBUMIN/GLOBULIN RATIO 0.8 (1.1-1.5); ALKALINE PHOSPHATASE 65 IU/L (46-116); ANION GAP 12 (8-16); ASPARTATE AMINO TRANSFERASE 16 U/L (10-37); BILIRUBIN,TOTAL 0.6 MG/DL (0.1-1.0); BLOOD UREA NITROGEN 35 MG/DL (7-18); BUN/CREATININE RATIO 13.8 (5.4-32.0); CALCIUM 7.9 MG/DL (8.5-10.1); CHLORIDE 109 MMOL/L (99-107); CREATININE 2.54 MG/DL (0.60-1.10); GLUCOSE 103 MG/DL (70-104); MAGNESIUM 1.7 MG/DL (1.5-2.4); PHOSPHORUS 3.3 MG/DL (2.3-4.5); POTASSIUM 3.7 MMOL/L (3.5-5.1); SODIUM 140 MMOL/L (135-145); TOTAL CARBON DIOXIDE 18.8 MMOL/L (24-32); TOTAL PROTEIN 5.1 G/DL (6.4-8.2); eGFR 24 ML/MIN
[2018-04-05] MEDS: pantoprazole 40 MG vial IV SCH ×2 (07:27→19:41)
[2018-04-05] MEDS: K, MAG and/or Phos replacement - Verify level? MC SCH (08:00)
[2018-04-05] MEDS: polyethylene glycol 3350 17gm powd pack PO SCH (19:46)
[2018-04-06] VITALS: BP 147/67
[2018-04-06 05:38] LABS: ALANINE AMINOTRANSFERASE 15 U/L (12-78); ALBUMIN/GLOBULIN RATIO 0.7 (1.1-1.5); ALKALINE PHOSPHATASE 53 IU/L (46-116); ANION GAP 10 (8-16); ASPARTATE AMINO TRANSFERASE 19 U/L (10-37); BILIRUBIN,TOTAL 0.7 MG/DL (0.1-1.0); BLOOD UREA NITROGEN 27 MG/DL (7-18); BUN/CREATININE RATIO 9.8 (5.4-32.0); CALCIUM 7.8 MG/DL (8.5-10.1); CHLORIDE 110 MMOL/L (99-107); CREATININE 2.75 MG/DL (0.60-1.10); GLUCOSE 98 MG/DL (70-104); MAGNESIUM 1.6 MG/DL (1.5-2.4); PHOSPHORUS 3.7 MG/DL (2.3-4.5); POTASSIUM 3.9 MMOL/L (3.5-5.1); SODIUM 142 MMOL/L (135-145); TOTAL CARBON DIOXIDE 22.2 MMOL/L (24-32); TOTAL PROTEIN 4.8 G/DL (6.4-8.2); eGFR 22 ML/MIN
[2018-04-06 05:43] LABS: BASOPHILS % (AUTO) 0.4 % (0-1); EOSINOPHILS % (AUTO) 5.4 % (0-6); HEMATOCRIT 27.8 % (42.0-52.0); HEMOGLOBIN 9.8 g/dl (14.0-17.9); LYMPHOCYTES % (AUTO) 13 % (21-51); MEAN CORPUSCULAR HGB CONC 35.4 % (33.0-36.5); MEAN PLATELET VOLUME 8.4 FL (7.4-10.4); MONOCYTES % (AUTO) 12.9 % (2-12); NEUTROPHILS # (AUTO) 4.8 X10'3 (1.8-7.7); NEUTROPHILS % (AUTO) 68.3 % (42-75); PLATELET COUNT 234 X10'3 (140-440); RED BLOOD COUNT 3.07 X10'6 (4.70-6.10)
[2018-04-06 05:44] LABS: EOSINOPHILS # (AUTO) 0.4 X10'3 (0-0.9); LYMPHOCYTES # (AUTO) 0.9 X10'3 (1.1-4.8); MEAN CORPUSCULAR VOLUME 90.5 FL (78-98); MONOCYTES # (AUTO) 0.9 X10'3 (0-0.9)
[2018-04-06 07:00] VITALS: BP 155/68
[2018-04-06 07:17] VITALS: BP 155/68
[2018-04-06] MEDS: pantoprazole 40 MG vial IV SCH (07:55)
[2018-04-06] MEDS: K, MAG and/or Phos replacement - Verify level? MC SCH (08:00)
[2018-04-06 10:33] VITALS: BP 155/68
[2018-04-06 11:00] VITALS: BP 148/80
[2018-04-06 18:00] VITALS: BP 127/53
[2018-04-06] MEDS: polyethylene glycol 3350 17gm powd pack PO SCH (20:22)
[2018-04-06] MEDS: pantoprazole 40mg Tablet.DR PO SCH (20:39)
[2018-04-07] VITALS: BP 126/58
[2018-04-07 06:18] LABS: BASOPHILS % (AUTO) 0.2 % (0-1); EOSINOPHILS # (AUTO) 0.4 X10'3 (0-0.9); EOSINOPHILS % (AUTO) 6.2 % (0-6); HEMATOCRIT 27.7 % (42.0-52.0); HEMOGLOBIN 9.3 g/dl (14.0-17.9); LYMPHOCYTES % (AUTO) 14.2 % (21-51); MEAN CORPUSCULAR HEMOGLOBIN 30.7 PG (27.0-31.0); MEAN CORPUSCULAR HGB CONC 33.4 % (33.0-36.5); MEAN CORPUSCULAR VOLUME 91.9 FL (78-98); MEAN PLATELET VOLUME 8.2 FL (7.4-10.4); MONOCYTES # (AUTO) 0.9 X10'3 (0-0.9); MONOCYTES % (AUTO) 11.8 % (2-12); NEUTROPHILS # (AUTO) 4.9 X10'3 (1.8-7.7); NEUTROPHILS % (AUTO) 67.6 % (42-75); PLATELET COUNT 265 X10'3 (140-440); RED BLOOD COUNT 3.01 X10'6 (4.70-6.10); RED CELL DISTRIBUTION WIDTH 14.7 % (11.5-14.5); WHITE BLOOD COUNT 7.3 X10'3 (4.5-11.0)
[2018-04-07 06:23] LABS: ALANINE AMINOTRANSFERASE 13 U/L (12-78); ALBUMIN/GLOBULIN RATIO 0.6 (1.1-1.5); ALKALINE PHOSPHATASE 59 IU/L (46-116); ANION GAP 8 (8-16); ASPARTATE AMINO TRANSFERASE 17 U/L (10-37); BILIRUBIN,TOTAL 0.5 MG/DL (0.1-1.0); BLOOD UREA NITROGEN 25 MG/DL (7-18); BUN/CREATININE RATIO 10.2 (5.4-32.0); CALCIUM 7.8 MG/DL (8.5-10.1); CHLORIDE 109 MMOL/L (99-107); CREATININE 2.46 MG/DL (0.60-1.10); GLUCOSE 100 MG/DL (70-104); MAGNESIUM 1.6 MG/DL (1.5-2.4); PHOSPHORUS 3.5 MG/DL (2.3-4.5); POTASSIUM 4.1 MMOL/L (3.5-5.1); SODIUM 141 MMOL/L (135-145); TOTAL CARBON DIOXIDE 23.7 MMOL/L (24-32); TOTAL PROTEIN 5.1 G/DL (6.4-8.2); eGFR 25 ML/MIN
[2018-04-07] MEDS ORDERED: PANT-47 PO (07:13)
[2018-04-07] MEDS: K, MAG and/or Phos replacement - Verify level? MC SCH (08:00)
[2018-04-07 08:05] VITALS: BP 157/69
[2018-04-07] MEDS: pantoprazole 40mg Tablet.DR PO SCH (08:12)
[2018-04-07 11:44] VITALS: BP 153/70
== END 2018-04-07 12:35 | disposition home or self-care (01) | DRG 377 ==
LOC: ER 21:22 → ED HOLD 23:18 → ICU 2S 04-01 00:50 → SUR 3N 04-03 08:39
PROVIDERS: ADMIT Internal Medicine Critical Care Medicine; ATTEND Internal Medicine
PROC: 30233N1 Transfusion of Nonautologous Red Blood Cells into Peripheral Vein, Percutaneous Approach (ICD-10-PCS; 2018-03-31)
PROC: 0DJ08ZZ Inspection of Upper Intestinal Tract, Via Natural or Artificial Opening Endoscopic (ICD-10-PCS; principal; 2018-04-01)
PROC: 30233N1 Transfusion of Nonautologous Red Blood Cells into Peripheral Vein, Percutaneous Approach (ICD-10-PCS; 2018-04-01)
PROC: 30233N1 Transfusion of Nonautologous Red Blood Cells into Peripheral Vein, Percutaneous Approach (ICD-10-PCS; 2018-04-02)
PROC: 30233N1 Transfusion of Nonautologous Red Blood Cells into Peripheral Vein, Percutaneous Approach (ICD-10-PCS; 2018-04-05)
DX: K26.4 Chronic or unspecified duodenal ulcer with hemorrhage (principal); N17.0 Acute kidney failure with tubular necrosis; R57.1 Hypovolemic shock; I21.A1 Myocardial infarction type 2; E87.2 Acidosis; D62 Acute posthemorrhagic anemia; F10.20 Alcohol dependence, uncomplicated; E87.5 Hyperkalemia; K44.9 Diaphragmatic hernia without obstruction or gangrene; I25.10 Atherosclerotic heart disease of native coronary artery without angina pectoris; N18.3 Chronic kidney disease, stage 3 (moderate); E78.5 Hyperlipidemia, unspecified; G89.29 Other chronic pain; M10.9 Gout, unspecified; I12.9 Hypertensive chronic kidney disease with stage 1 through stage 4 chronic kidney disease, or unspecified chronic kidney disease; K22.2 Esophageal obstruction; R91.8 Other nonspecific abnormal finding of lung field; K29.71 Gastritis, unspecified, with bleeding; Z95.1 Presence of aortocoronary bypass graft; Z88.8 Allergy status to other drugs, medicaments and biological substances; Z79.899 Other long term (current) drug therapy; Z85.118 Personal history of other malignant neoplasm of bronchus and lung; Z92.21 Personal history of antineoplastic chemotherapy; Z92.3 Personal history of irradiation
CPT/HCPCS: 36415; 36600; 43239; 71045; 71250; 74176; 80053; 81003; 82570; 82803; 83735; 84100; 84156; 84484; 84540; 85018; 85025; 85027; 85610; 85730; 86885; 86900; 86901; 86920; 87070; 88305; 93005; 96365; 96375; 97116; 97162; 97530; 99152; 99291; C9113; G0378; J2250; J2270; J2354; J2405; J3010; J3475; J7030; P9016

== ENCOUNTER 2018-07-25 10:57 | Emergency (ER) | payer MEDICARE, MEDICAID ==
[~2018-07-25] VITALS: Ht 170.2 cm; Wt 60.0 kg
[~2018-07-25 10:57] MED LIST changes: +AMLO10TA4 PO; +METO25TA6 PO; -OSC500T PO; +PANT-47 PO
[2018-07-25] MEDS ORDERED: methylPREDNISolone sod succ 125mg/2ml vial IM ONE (11:55)
[2018-07-25 12:23] LABS: BASOPHILS % (AUTO) 0.4 % (0-1); EOSINOPHILS # (AUTO) 0.1 X10'3 (0-0.9); EOSINOPHILS % (AUTO) 0.9 % (0-6); HEMATOCRIT 38.8 % (42.0-52.0); LYMPHOCYTES # (AUTO) 1.2 X10'3 (1.1-4.8); LYMPHOCYTES % (AUTO) 13.8 % (21-51); MEAN CORPUSCULAR HEMOGLOBIN 29.8 PG (27.0-31.0); MEAN CORPUSCULAR HGB CONC 33.5 g/dL (33.0-36.5); MEAN CORPUSCULAR VOLUME 88.8 FL (78-98); MEAN PLATELET VOLUME 7.6 FL (7.4-10.4); MONOCYTES % (AUTO) 11.1 % (2-12); NEUTROPHILS # (AUTO) 6.4 X10'3 (1.8-7.7); NEUTROPHILS % (AUTO) 73.8 % (42-75); PLATELET COUNT 205 X10'3 (140-440); RED BLOOD COUNT 4.37 X10'6 (4.70-6.10); RED CELL DISTRIBUTION WIDTH 15.5 % (11.5-14.5); WHITE BLOOD COUNT 8.7 X10'3 (4.5-11.0)
[2018-07-25] MEDS ORDERED: METH4TAB81 PO (12:49)
[2018-07-25] MEDS ORDERED: CEPH500C5 PO (12:49)
[2018-07-25 13:16] VITALS: BP 170/85
== END 2018-07-25 13:04 | disposition home or self-care (01) ==
LOC: ER 10:58
DX: M25.531 Pain in right wrist (principal); I25.10 Atherosclerotic heart disease of native coronary artery without angina pectoris; M10.9 Gout, unspecified; Z95.1 Presence of aortocoronary bypass graft; Z88.1 Allergy status to other antibiotic agents
CPT/HCPCS: 36415; 73110; 84145; 85025; 96372; 99284; J2930

== ENCOUNTER 2019-03-01 01:46 | Emergency (ER) | payer MEDICARE, MEDICAID ==
[~2019-03-01] VITALS: Ht 177.8 cm; Wt 61.0 kg
[~2019-03-01 01:46] MED LIST changes: +CEPH500C5 PO; +METH4TAB81 PO
[2019-03-01 02:04] LABS: BASOPHILS % (AUTO) 0.5 % (0-1); EOSINOPHILS # (AUTO) 0.2 X10'3 (0-0.9); EOSINOPHILS % (AUTO) 1.9 % (0-6); HEMOGLOBIN 13.7 g/dl (14.0-17.9); LYMPHOCYTES # (AUTO) 2.4 X10'3 (1.1-4.8); LYMPHOCYTES % (AUTO) 28.5 % (21-51); MEAN CORPUSCULAR HEMOGLOBIN 32.7 PG (27.0-31.0); MEAN CORPUSCULAR HGB CONC 34.2 g/dL (33.0-36.5); MEAN CORPUSCULAR VOLUME 95.5 FL (78-98); MEAN PLATELET VOLUME 7.8 FL (7.4-10.4); MONOCYTES # (AUTO) 0.4 X10'3 (0-0.9); MONOCYTES % (AUTO) 5.1 % (2-12); NEUTROPHILS # (AUTO) 5.3 X10'3 (1.8-7.7); PLATELET COUNT 162 X10'3 (140-440); RED BLOOD COUNT 4.19 X10'6 (4.70-6.10); RED CELL DISTRIBUTION WIDTH 14.3 % (11.5-14.5); WHITE BLOOD COUNT 8.3 X10'3 (4.5-11.0)
[2019-03-01 02:17] LABS: ALANINE AMINOTRANSFERASE 22 U/L (12-78); ALBUMIN 3.5 G/DL (3.4-5.0); ALBUMIN/GLOBULIN RATIO 0.9 (1.1-1.5); ALKALINE PHOSPHATASE 99 IU/L (46-116); ANION GAP 13 (8-16); ASPARTATE AMINO TRANSFERASE 20 U/L (10-37); BILIRUBIN,TOTAL 0.5 MG/DL (0.1-1.0); BLOOD UREA NITROGEN 48 MG/DL (7-18); BUN/CREATININE RATIO 21.2 (5.4-32.0); CALCIUM 8.5 MG/DL (8.5-10.1); CHLORIDE 105 MMOL/L (99-107); CREATININE 2.26 MG/DL (0.60-1.10); GLUCOSE 187 MG/DL (70-104); POTASSIUM 4.1 MMOL/L (3.5-5.1); SODIUM 138 MMOL/L (135-145); TOTAL CARBON DIOXIDE 19.6 MMOL/L (24-32); TOTAL PROTEIN 7.3 G/DL (6.4-8.2); eGFR 28 ML/MIN
[2019-03-01 02:33] LABS: CLARITY,URINE CLEAR (Clear); COLOR,URINE YELLOW (Yellow); GLUCOSE, URINE NEGATIVE (Neg); KETONES,URINE NEGATIVE (Neg); LEUKOCYTE ESTERASE ,URINE NEGATIVE (Neg); NITRITES, URINE NEGATIVE (Neg); OCCULT BLOOD,URINE TRACE-INTACT (Neg); PROTEIN,URINE NEGATIVE (Neg); UROBILINOGEN,URINE 0.2 E.U/dL (0.2-1.0)
[2019-03-01 02:35] LABS: UA COLLECTION TYPE CLN CATCH MIDSTREAM
[2019-03-01 02:44] LABS: BACTERIA,URINE NONE SEEN /HPF (Neg); RBC,URINE 0-2 /HPF (0-2); SQUAMOUS EPITHELIAL CELL,UR FEW /LPF (FEW); WBC,URINE NONE SEEN /HPF (0-4)
[2019-03-01] MEDS ORDERED: Levetiracetam-NS 500mg/100ml 100 ML IV ONE (03:00)
[2019-03-01] MEDS ORDERED: levetiracetam inj 500 MG in normal saline 100ml IV soln 95 ML IV SCH ×2 (03:00→08:00)
--- NOTE | 2019-03-01 03:17 | NUR ---
Patient resting comfortably in bed. Patient and family updated on POC.
--- NOTE | 2019-03-01 03:53 | NUR ---
Patient's Paola [phone] and family member [phone] for updates.
[2019-03-01 04:54] VITALS: BP 138/63
== END 2019-03-01 04:56 | disposition short-term general hospital (02) ==
LOC: ER 01:46
DX: G93.89 Other specified disorders of brain (principal); R56.9 Unspecified convulsions; R41.0 Disorientation, unspecified; I25.10 Atherosclerotic heart disease of native coronary artery without angina pectoris; N18.9 Chronic kidney disease, unspecified; M19.90 Unspecified osteoarthritis, unspecified site; M10.9 Gout, unspecified; Z85.118 Personal history of other malignant neoplasm of bronchus and lung; Z87.11 Personal history of peptic ulcer disease; Z95.1 Presence of aortocoronary bypass graft; Z88.1 Allergy status to other antibiotic agents; Z79.899 Other long term (current) drug therapy
CPT/HCPCS: 36415; 70450; 71045; 80053; 81001; 84484; 85025; 93005; 96365; 99291; J1953; 96374